=== PATIENT | female | born 1940 | race Caucasian/White ===

== ENCOUNTER 2024-01-22 20:55 | Emergency (ER) | payer MEDICARE, OTHER, SELFPAY ==
[2024-01-22 21:01] VITALS: BP 189/79
[2024-01-22 21:46] VITALS: BP 175/62
[2024-01-22 22:00] VITALS: BP 174/69
[2024-01-22 22:00] LABS: Urine Albumin Negative (Neg - Trace); Urine Bilirubin Negative (Negative); Urine Character Clear (Clear); Urine Color Yellow; Urine Glucose Negative (Negative); Urine Ketone Negative (Negative); Urine Leukocyte Trace (Negative); Urine Nitrite Negative (Negative); Urine Occult Blood Negative (Negative); Urine Specific Gravity 1.005 (<1.030); Urine Urobilinogen Negative (Neg - 1+)
[2024-01-22] MEDS: NSS 1000 IV (22:01)
--- NOTE | 2024-01-22 22:07 | ED.GENMED ---
History of Present Illness
General
Chief Complaint: Urinary Symptoms
Source: patient
Exam Limitations: none
Time Seen by Provider: 01/22/24 21:47
Travel History
Have you had any contact with someone who has COVID-19?: No
Do you have any symptoms of coronavirus? Fever > 100 degrees, chills, cough, shortness of breath, sore throat, loss of taste or smell, muscle aches, or headache?: No
History of Present Illness
History of Present Illness:
This is a 83 year old female that comes in with c/o lower abd pain. States that she thought she had a UTI as she was having frequency. States that she went to and they felt a hard lump in the lower abd between her naval and bladder. State that
she was told to come to the ER. States that she has had urinary frequency and lower abd discomfort. States that she is always dizzy with her Vertigo. Denies any fever, chills, chest pain, SOB, nausea, vomiting, diarrhea, headache, urinary burning.
Past History
Past History
ED Past Medical History: HTN, Hypercholesterolemia and Other (Vertigo, )
ED Past Surgical History: Gynecological (Tubal)
Social History
Tobacco: Non-smoker
Alcohol: Occasional
Personal:
Living: alone
Review of Systems
Review of Systems
All Other Systems: ROS reviewed and negative except as documented in HPI and ROS
Constitutional: Reports no symptoms; Denies fever or chills
EENT: Reports no symptoms
Respiratory: Reports no symptoms; Denies cough or trouble breathing
Cardiac: Reports no symptoms; Denies chest pain
ABD/GI: Reports abdominal pain; Denies nausea, vomiting or diarrhea
: Reports frequency; Denies dysuria or urgency
Musculoskeletal: Reports no symptoms
Skin: Reports no symptoms
Neurological: Reports dizzy (Always dizzy); Denies headache
Psychiatric: Reports no symptoms
Phy Exam
General Physical Exam
General Presentation: well appearing and no apparent distress
General age: appears stated age
General Skin: warm and dry
General Habitus: elderly
General Mental: alert
General Hydration: dry mucous membranes
ENT Exam
ENT Exam: TM's normal, pharynx normal and neck supple
Eye Exam
Eye Exam: EOMI
Cardiovascular Exam
Cardiovascular Exam: regular rate/rhythm, no edema, no murmur and normal peripheral pulses
Pulmonary Exam
Pulmonary Exam: lungs clear, no respiratory distress, no rales, chest non tender, no crackles, no rhonchi, no wheezing and no cough
Gastrointestinal Exam
Gastrointestinal Exam: normal bowel sounds, soft, no organomegaly, no pulsatile mass, non distended and tender (Slight tenderness with hard palpable mass just below the naval. Unable to reduce at this time. )
Musculoskeletal Exam
Musculoskeletal Exam: full ROM and no edema
Skin Exam
Skin Exam: normal color, warm/dry, no rash and no petechia
Psychiatric Exam
Psychiatric Exam: normal mood/affect
Course
Orders/Labs/Results
Orders:
Orders
01/22/24 21:48
Urinalysis Reflex To Culture Urgent
Date Specimen was Collected: 01/22/24
Time Specimen was Collected: 21:21
Urine Microscopic Reflex Cult Urgent
01/22/24 21:55
0.9% Sodium Chloride 1000 ml [Nss] 1,000 ml IV BOLUS
01/22/24 22:00
Complete Blood Count/With Diff Urgent
Comprehensive Metabolic Panel Urgent
01/23/24 00:05
CT Abd/pelvis W Iv Cont Urgent
Reason For Exam: lOWER ABD PAIN, HARD MASS
Abnormal Lab Results
01/22/24 01/22/24
21:48 22:00
RBC 3.97 L 10^6/uL
(4.20-5.40)
Hct 35.6 L %
(37.0-47.0)
Lymphocytes % 18.5 L %
(20.5-51.1)
BUN 23 H mg/dl
(7-17)
Glucose 128 H mg/dl
(70-99)
Leukocyte Esterase Rfl Trace A
(Negative)
Urine Bacteria (Reflex) Few A
(Negative)
01/22/24 22:00
01/22/24 22:00
Dehydration. Glucose nonfasting. Urine negative for infection.
Vital Signs
Initial and Last Documented VS:
Initial Vital Signs
Temp Pulse Resp BP Pulse Ox
97.5 F 72 18 189/79 100
01/22/24 21:01 01/22/24 21:01 01/22/24 21:01 01/22/24 21:01 01/22/24 21:01
Last Documented Vital Signs
Temp Pulse Resp BP Pulse Ox
97.5 F 72 18 174/69 99
01/22/24 21:01 01/22/24 21:01 01/22/24 21:01 01/22/24 22:00 01/22/24 22:30
MDM/Problems Addressed
Differential Diagnosis Includes:
Abd hernia's, UTI,
MDM/Problems Addressed:
This is a 83 year old female that comes in with c/o lower abd discomfort. States that she felt she had a UTI as sh was having frequency. Patient went to and she was then sent to the ER as they felt hard palpable masses below the naval and above
the Bladder.
Will get labs and CT scan.
Back into see patient. Explained that her CT shows a ventral hernia that is fat filled. There is some stranding but no bowel involement. Will have patient follow up with the General Surgeon. Patient to return with increased or changing abd pain,
vomiting, or any other concerns.
Chronic conditions affecting care:
NA
Acute Exacerbation and/or Progression of Chronic Illness:
NA
*Radiology
Radiology exam reviewed: radiology read reviewed (CT night hawk- Mildly dilated bilateral ureters without obstructive uropathy. No nephrolithiasis or pyelonephritis. Bladder is mildly distended without bladder wall thickening. No bowel obstruction
or inflammation. Appendix is normal. No free air or free fluid. Cholelithiasis without chylecystitis.) and other (CT cont- MOderate fat-containing lower ventral hernia. Internal fat stranding within the hernia sac may represent some degree of
strength relation. )
*Pulse Oximetry
Patient hypoxic: no
*EKG
Interpreted by ED Provider?: NA
Rate: EKG- N/A
*Fibreglass Gun Hand Interpretation
Rate: Fibreglass Gun Hand- N/A
*Critical Care Note
Total Time (30-74mins, 75-104mins- exclusive of procedures): Not Applicable
ED Attending Note
-
Portions of this chart may have been created with voice recognition software.� Occasional wrong word or��sound alike� substitutions may have occurred due to the inherent limitations of voice recognition software.
Discharge Plan
Departure
Patient Disposition: Home (Routine Discharge)
Date of Disposition: 01/23/24
Time of Disposition: 01:09
Patient with high blood pressure during this ER visit?: Yes
Condition: Good
Covid-19: Not Applicable
Discharge Problem:
Hernia, ventral
Instructions: Abdominal wall hernias, BLOOD PRESSURE
Referrals:
April Wick PA [Family Provider] -
Parmjit Christianson MD [Active] - Follow up in 2-3 days
Activity Restrictions/Additional Instructions:
As discussed, your blood work shows some dehydration. Please increase your water intake to 8-8oz glasses daily. Your urine is negative for infection. Your CT shows that you have a ventral hernia. Please follow up with the general surgeon for further
evaluation and treatment. IF YOU HAVE INCREASED OR CHANGING ABDOMINAL PAIN, VOMITING, OR YOU HAVE ANY OTHER CONCERNS PLEASE RETURN TO THE EMERGENCY ROOM.
Interventions
Interventions:
*General Assessment Last Done: 01/22/24 21:01
*ED COVID-19 Vaccine History Last Done: 01/22/24 21:01
ED-Female Genitourinary Assessment Last Done: 01/22/24 21:56
Discharge Date and Time
Print Language: SLOVAK
[2024-01-22 22:09] LABS: Urine Bacteria Few (Negative); Urine Red Blood Cell 0-2 /HPF (0-2); Urine Squamous Cell 16-20 /LPF (Few); Urine White Cell 0-2 /HPF (0-5)
[2024-01-22 22:12] LABS: % Basophils 0.5 % (0-2); % Eosinophils 1.5 % (0-6); % Immature Granulocytes 0.2 % (0-0.5); % Lymphocytes 18.5 % (20.5-51.1); % Monocytes 8.2 % (1.7-9.3); % Neutrophils 71.1 % (42.2-75.2); Absolute Eosinophils 0.1 10^3/uL (0-0.7); Absolute Lymphocytes 1.2 10^3/uL (1.2-3.4); Absolute Monocytes 0.5 10^3/uL (0.1-0.6); Absolute Neutrophils 4.7 10^3/uL (1.4-6.5); Hematocrit 35.6 % (37.0-47.0); Hemoglobin 12.2 g/dL (12.0-16.0); Mean Corp Hgb Conc. 34.3 g/dL (33.0-37.0); Mean Corpuscular Hgb 30.7 pg (27.0-31.0); Mean Corpuscular Volume 89.7 fL (81.0-99.0); Mean Platelet Volume 9.1 fL (7.4-10.4); Nucleated Red Blood Cells % 0 %; Platelet Count 207 10^3/uL (130-400); Red Blood Cell Count 3.97 10^6/uL (4.20-5.40); Red Cell Dist. Width 13.2 % (11.5-14.5); White Blood Cell Count 6.6 10^3/uL (4.8-10.8)
[2024-01-22 22:28] LABS: ALT (SGPT) 17 U/L (0-35); AST (SGOT) 23 U/L (14-36); Albumin 3.9 g/dl (3.5-5.0); Alkaline Phosphatase 96 U/L (38-126); Blood Urea Nitrogen 23 mg/dl (7-17); Calcium 9.1 mg/dl (8.4-10.2); Carbon Dioxide 24 mmol/L (22-30); Chloride 105 mmol/L (98-107); Glucose 128 mg/dl (70-99); Potassium 3.8 mmol/L (3.5-5.1); Sodium 137 mmol/L (135-145); Total Bilirubin 0.6 mg/dl (0.2-1.3); Total Protein 6.9 g/dl (6.3-8.2); eGFR > 60.00
[2024-01-22 23:00] VITALS: BP 165/70
[2024-01-23 01:23] VITALS: BP 158/67
[2024-01-23 01:25] VITALS: BP 158/67
== END 2024-01-23 01:25 | disposition home or self-care (01) ==
LOC: EMR 20:55
PROVIDERS: Clinical Nurse Specialist Family Health; Emergency Medicine; EMERGENCY PHYSICIAN Emergency Medicine; FAMILY PHYSICIAN Physician Assistant Medical
DX: K43.9 Ventral hernia without obstruction or gangrene (principal); K80.20 Calculus of gallbladder without cholecystitis without obstruction; R42 Dizziness and giddiness; I10 Essential (primary) hypertension; E78.00 Pure hypercholesterolemia, unspecified
CPT/HCPCS: 99285; 96360; 74177; 80053; 81003; 81015; 85025; Q9967

== ENCOUNTER → 2024-04-15 09:02 | Outpatient (REF) | payer MEDICARE, OTHER, SELFPAY ==
[2024-04-15 10:34] LABS: Hematocrit 37.2 % (37.0-47.0); Hemoglobin 12.2 g/dL (12.0-16.0); Mean Corp Hgb Conc. 32.8 g/dL (33.0-37.0); Mean Corpuscular Hgb 30.4 pg (27.0-31.0); Mean Corpuscular Volume 92.8 fL (81.0-99.0); Mean Platelet Volume 9.4 fL (7.4-10.4); Platelet Count 202 10^3/uL (130-400); Red Blood Cell Count 4.01 10^6/uL (4.20-5.40); Red Cell Dist. Width 13.7 % (11.5-14.5); White Blood Cell Count 4.8 10^3/uL (4.8-10.8)
[2024-04-15 11:05] LABS: Blood Urea Nitrogen 33 mg/dl (7-17); Calcium 9.1 mg/dl (8.4-10.2); Carbon Dioxide 25 mmol/L (22-30); Chloride 107 mmol/L (98-107); Glucose 83 mg/dl (70-99); Potassium 4.4 mmol/L (3.5-5.1); Sodium 138 mmol/L (135-145); eGFR > 60.00
== END ==
LOC: SDSPAT 09:02
PROVIDERS: ATTENDING PHYSICIAN Surgery; FAMILY PHYSICIAN Physician Assistant Medical
DX: Z01.818 Encounter for other preprocedural examination (principal)
CPT/HCPCS: 36415; 80048; 85027; 93005

== ENCOUNTER 2024-04-26 06:22 | Day surgery (SDC) | payer MEDICARE, OTHER, SELFPAY ==
[2024-04-26] VITALS (9 sets, daily range): BP systolic 126–180; BP diastolic 57–75; BMI 31.6
--- NOTE | 2024-04-26 06:44 | HP.FOC2 ---
Focused History & Physical
Chief Complaint
HPI:
Chief Complaint: Incisional hernia
HPI / Indication for Planned Procedure: Patient is an 83-year-old female recently seen in outpatient surgical evaluation secondary to an incisional hernia. This past January she took note of a hard lump and swelling in the suprapubic area that she had
previously not been aware of. There is some mild discomfort in the region and was referred to the emergency department for evaluation. CT imaging identified a fat-containing incisional hernia prompting recent surgical referral. She has an
awareness of the hernia being present and occasional pressure-like discomfort in the area.
Past abdominal surgical history notable for open tubal ligation through a lower midline vertical incision which corresponds to the region of her incisional hernia swelling.
Relevant Past Medical History: Other (Hypertension, vertigo, osteopenia, osteoarthritis, hypercholesterolemia)
Relevant Social History: Negative
Relevant Family History: Negative
Relevant Past Surgical History: Positive for (Tubal ligation, bilateral cataracts)
Review of Systems
Review of Pertinent Systems: All Systems Negative
Medication
See Medication form for detailed medications: Yes
Medication List (including Herbals & OTC):
Tumeric 1 dose PO DAILY 04/19/24
alendronate 70 mg tablet 70 mg PO QWEEK 04/19/24
atorvastatin 10 mg tablet 10 mg PO Q OTHER DAY 04/19/24
collagen 1 dose PO DAILY 04/19/24
diclofenac sodium 75 mg tablet,delayed release 75 mg PO BID PRN pain 04/19/24
losartan 25 mg tablet 1 mg PO DAILY 04/19/24
meclizine 12.5 mg tablet 12.5 mg PO TID PRN vertigo 04/19/24
zvfkmbmp-hjqu-fmdc 8 mg-folic 400 mcg-K 50 mcg-lutein 300 mcg tablet (Centrum Silver Women) 1 tab PO DAILY 04/19/24
omega-3 fatty acids 1 cap PO DAILY 04/19/24
Medications Reviewed: Yes
Allergies and Reactions
Patient has Allergies: No
Noted Allergies and Reactions:
Allergy/AdvReac Type Severity Reaction Status Date / Time
No Known Allergies Allergy Verified 04/19/24 10:39
Pertinent Physical Exam
All Other Systems: Negative
Head/Neck: Normal
Lungs: Normal
Heart: Normal
Abdomen: Other (Chronically incarcerated lower midline incisional hernia, nontender but firmly protuberant. No overlying skin changes. Hernia corresponds to location of her lower midline surgical scar. There is also a second soft, reducible
umbilical hernia.)
Extremities: Normal
Neurological: Normal
Diagnosis / Assessment
83-year-old female presenting for scheduled operative correction of lower midline chronically incarcerated incisional hernia and adjacent umbilical hernia. Together hernias complex approximately 7 to 8 cm in vertical length and span a maximal width
of 2 to 3 cm.
Plan / Procedure
Robotic assisted laparoscopic repair incisional/umbilical hernias with mesh
Anesthesia/Sedation to be done by Anesthesia Provider: Yes
[2024-04-26] MEDS: TYLENOL 1000 MG PO (09:05)
[2024-04-26] MEDS: NORMOSOL-R 1000 IV (09:06)
--- NOTE | 2024-04-26 09:22 | W.SUR.PREOP ---
Pre-Operative Surgical Note
-
I have examined this patient prior to the performance of the scheduled procedure.
The patient's condition is unchanged from the time of the current History and
Physical and the patient is able to undergo the scheduled procedure.
--- NOTE | 2024-04-26 12:52 | W.IMMPOSTOP ---
Addendum entered and electronically signed by Parmjit Christianson MD 04/26/24 16:56:
#[id number]
Original Note:
Surgical Immed Post Op Note
-
Primary Surgeon: Meghan
Assisting Surgeon: Soni STORM
Pre-op Diagnosis: Incisional hernia and umbilical hernia
Post-op Diagnosis: Incisional hernia and umbilical hernia (11 cm in total length)
Procedure Performed: Robotic assisted laparoscopic ALAN repair incisional hernia and umbilical hernias with mesh (15 cm x 14 cm soft mesh; 8 cm x 7.5 cm soft mesh)
Anesthesia Type: GETA +0.25% Marcaine
Specimen / Cultures: None
Estimated Blood Loss: 16 mL
Complications: None immediate
Operative Findings: Chronically incarcerated lower midline incisional hernia. Omentum carefully reduced. Transabdominal preperitoneal repair of incisional and umbilical hernias. Incisional hernia 4 cm with 4 cm fascial bridge between it and the
separate 2.5 cm umbilical hernia defect. One continuous peritoneal flap. Each fascial defect closed individually with 0 PDS Stratafix symmetric. Incisional hernia underlay preperitoneal mesh 15 cm x 14 cm Bard soft mesh secured with numerous
interrupted 2-0 Vicryl. Umbilical hernia underlay preperitoneal mesh 8 cm x 7.5 cm soft mesh secured with interrupted 2-0 Vicryl. Peritoneal flap closed with 2-0 Monocryl Stratafix viral. Incisional hernia sac utilized to bolster any thin areas
or openings in peritoneal flap.
Patient's son updated postoperatively in the waiting area.
[2024-04-26] MEDS: TORADOL 10 MG IV ×2 (13:35→22:05)
[2024-04-26] MEDS: NSS 1000 IV ×2 (14:25→22:07)
--- NOTE | 2024-04-26 14:45 | PTCARENOTE ---
Pt received from the PACU via bed. Transport was w/o incident. Pt is AAOx3, HRR, lungs are clear. Abd with Lap sites well approximated, no drainage noted. Abd binder maintained as ordered. VSS, pt is afebrile. Pt instructed on plan of care. Pt
verbalized understanding of instructions, call mascorro is within reach.
--- NOTE | 2024-04-26 15:23 | CM ---
Met with patient and son at bedside; initial assessment completed
Pharmacy verified: [facility] [address] [facility], [place], [place]
Family physician verified/asked Admissions to update medical record: April Wick PA-C; [address], [place] [address]; phone #[phone]
Patient reported she lives alone in a 2 story home; Lives on 1st floor of the home; has handicap Bathroom w/ walk-in shower, grab bars
Patient reported she is independent with ambulation and ADLs; Drives; Deaf in Left Ear; stated that balance is off but does not use device w/ ambulation at this time
DME: CPAP; has a cane and RW but does not use them
No SNF or Home Health history
Daughter will transport home
Adult children plan to provide support the week she goes home; one plans to stay with her in her home
Plan: discharge to home when medically stable; no needs anticipated
[2024-04-27] MEDS: TORADOL 10 MG IV ×2 (06:01→11:55)
[2024-04-27 09:02] VITALS: BP 132/57
[2024-04-27] MEDS: COZAAR PO (09:04)
[2024-04-27] MEDS: COZAAR 25 MG PO (09:55)
--- NOTE | 2024-04-27 10:52 | W.PN.GS2 ---
Today's Communication / Plan
-
dispo planning
Assessment / Plan
-
83 yo female who is POD #1 RAL dodie repiar of incisional and umbilical hernias with mesh
AFVSS
Pain well controlled
Tolerating diet
--Continue current diet
--C/W home meds
--Analgesics prn
--Discharge to home
Subjective Data
-
Date of Service: April 27, 2024
Patient seen and examined at bedside with Dr. Philip. HUDDLESTON to chair. Denies pain. Denies n/v. Tolerating diet. Passing flatus. Daughter on speaker phone during exam and questions addressed.
Objective Data
-
Intake and Output
04/26/24 04/27/24 04/28/24
06:59 06:59 06:59
Intake Total 300 / 300 1920 / 1920
Output Total 900 / 900 1350 / 1350
Balance -600 / -600 570 / 570
Intake:
Oral fluids 720 / 720
IV fluids (Total) 300 / 300 1200 / 1200
Normosal 300 / 300
Output:
Urine, [place] 900 / 900
Urine, Voided 1350 / 1350
Vital Signs
Temp Pulse Resp BP Pulse Ox
98.2 F 51 16 132/57 96
04/27/24 09:02 04/27/24 09:55 04/27/24 09:02 04/27/24 09:55 04/27/24 09:02
Physical Exam
-
NAD
ABD soft, NT, ND, incision well approximated/dry/intact
[2024-04-27 11:58] VITALS: BP 158/62
[2024-04-27] MEDS: NSS IV (12:40)
--- NOTE | 2024-04-29 12:01 | W.DS.TRANS ---
DC Summary - Assistant Auditor
-
Discharge Instructions:
Discharge Diagnosis/Procedures Incisional/umbilical hernia. Robotic assisted
laparoscopic repair incisional and umbilical
hernias with mesh
Diet As tolerated,Regular
Additional Diets Smaller meals initially as abdominal bloating
and distention may be common for the first few
days or week after surgery
Activity No strenuous activity
Additional Activity No lifting over 15 pounds for 6 weeks
postoperatively.
Driving Restrictions No driving for 1 week
Wound Care Glue at surgical sites typically peels off in 2
to 3 weeks
Instructions:
Stand-Alone Forms:
Changes to Home Medications: No
Discharge Medications:
DC Medications w/original date entered in [facility]
Tumeric 1 dose PO DAILY 04/19/24
alendronate 70 mg tablet 70 mg PO QWEEK 04/19/24
atorvastatin 10 mg tablet 10 mg PO Q OTHER DAY 04/19/24
collagen 1 dose PO DAILY 04/19/24
diclofenac sodium 75 mg tablet,delayed release 75 mg PO BID PRN pain 04/19/24
losartan 25 mg tablet 1 mg PO DAILY 04/19/24
meclizine 12.5 mg tablet 12.5 mg PO TID PRN vertigo 04/19/24
vmeulhzj-ovuj-aylp 8 mg-folic 400 mcg-K 50 mcg-lutein 300 mcg tablet (Centrum Silver Women) 1 tab PO DAILY 04/19/24
omega-3 fatty acids 1 cap PO DAILY 04/19/24
acetaminophen 500 mg tablet 1,000 mg PO Q6H PRN pain 04/26/24
loratadine 10 mg tablet (Claritin) 10 mg PO DAILY PRN allergies 04/26/24
tramadol 50 mg tablet 25 - 50 mg (0.5 - 1 x 50 mg) PO Q6HPRN PRN severe pain/breakthrough pain #10 tabs 04/27/24
Home Medication Changes
Pending Results: No
== END 2024-04-27 12:50 | disposition home or self-care (01) ==
LOC: SDS 06:22
PROVIDERS: ATTENDING PHYSICIAN Surgery; FAMILY PHYSICIAN Physician Assistant Medical
PROC: 0WUF4JZ Supplement Abdominal Wall with Synthetic Substitute, Percutaneous Endoscopic Approach (ICD-10-PCS; 2024-04-26)
PROC: 8E0W4CZ Robotic Assisted Procedure of Trunk Region, Percutaneous Endoscopic Approach (ICD-10-PCS; 2024-04-26)
DX: K42.9 Umbilical hernia without obstruction or gangrene (principal); K43.2 Incisional hernia without obstruction or gangrene; I10 Essential (primary) hypertension; E78.00 Pure hypercholesterolemia, unspecified; M85.80 Other specified disorders of bone density and structure, unspecified site
CPT/HCPCS: 49595; C1781